=== PATIENT | female | born 1980 | race Two or more races ===

== ENCOUNTER 2016-06-26 12:27 | Emergency (ER) | payer OTHER ==
--- NOTE | ~2016-06-26 | ER ---
[facility] 36 [facility] [address] ROOM: [place] [address] LOCATION: ED ADMIT DATE: 06/26/2016 ER/Outpatient Report DISCHARGE DATE: 06/26/2016 FAMILY PHYSICIAN: Shante Schumacher MD ATTENDING PHYSICIAN: Gio Salinas Time of Arrival: 1257 hours. Time of Evaluation/Exam: 1257 hours. CHIEF COMPLAINT: Epigastric pain. HISTORY OF PRESENT ILLNESS: The patient states last night developed midepigastric pain that has been continuous throughout today. She has been nauseated, has not vomited. States she has had chills, but no fever. Has had some urinary frequency but no pain with urination. Has not had diarrhea. Had a normal bowel movement yesterday about 4 o'clock. Did not notice any blood with that. Has not noticed any blood in the urine. States she ate a salad last night for supper. States she has never had pain like this before. However, the ER records show that she has been here for right upper quadrant abdominal pain in the past. ALLERGIES: NO KNOWN ALLERGIES. CURRENT MEDICATIONS: On the chart and reviewed by me. PAST MEDICAL HISTORY: 1. Anemia. 2. Hypothyroidism. PAST SURGICAL HISTORY: Tubal ligation and heart surgery as a . She thinks it was a valve replacement, but she is not for sure. Last menstrual period was 06/06/2016. SOCIAL HISTORY: She denies use of tobacco, drugs, or alcohol. She works at [employer] in the [employer] [place]. REVIEW OF SYSTEMS: All negative other than those mentioned in the HPI. She does see Dr. Shante Schumacher and did see her on 06/22/2016, but she did not have this pain at that time. [facility] 36 Y [address] ROOM: [place], [place] [address] LOCATION: ED ADMIT DATE: 06/26/2016 ER/Outpatient Report DISCHARGE DATE: 06/26/2016 FAMILY PHYSICIAN: Shante Schumacher MD ATTENDING PHYSICIAN: Gio Salinas PHYSICAL EXAMINATION: VITAL SIGNS: She weighs 62.4 kg. Blood pressure is 134/68; pulse is 74; respirations 16; temperature of 98.2, tympanic; and O2 saturation is 97% on room air. GENERAL APPEARANCE: She is awake, alert, and oriented x4. SKIN: [place], warm, and dry. RESPIRATORY: Respirations are even and nonlabored. Lung sounds are clear throughout. HEART: Regular rate and rhythm. ABDOMEN: Soft and nondistended. Bowel sounds are present. She is tender to palpate in the right and left upper quadrant areas. MUSCULOSKELETAL: She walked in with a steady even gait. No peripheral edema noted. EMERGENCY DEPARTMENT COURSE: The patient was given Zofran 4 mg ODT. Laboratory work was drawn. CBC is within normal limits. Her hemoglobin is 10.8 with hematocrit of 33.7. Chem panel is within normal limits. Amylase was 49, lipase was 173. Clean-catch UA was obtained. Does show 500 leukocytes, and is positive for rare bacteria with 5-10 white blood cells. After approximately half hour from the Zofran, she was given a GI cocktail. She did go to ultrasound. Ultrasound was reported as negative. No signs of gallbladder stones or wall thickening. The patient continued to have some discomfort in the epigastric area. She was given Toradol 60 mg IM. It did calm things down. IMPRESSION: 1. Urinary tract infection. 2. Abdominal pain. PLAN: Home, rest, and fluids. The patient is to start on some omeprazole over the counter 1 tablet daily for the next couple weeks. If her symptoms do not improve within the next day 2 to 3 days, I would like her to follow up with Dr. Shante Schumacher. She verbalized understanding. LUAN MARTIN APRN FOR MD BHARAT CANDELARIO/jeanne /[id number] d: 06/26/162112 t: 07/06/16 0638, OUTPATIENT REPORT
[2016-06-26 13:23] LABS: BASOPHIL # 0.1 K/uL (0.0-0.2); BASOPHIL % 1.2 %; EOSINOPHIL # 0.1 K/uL (0.0-0.5); EOSINOPHIL % 1.4 %; HEMATOCRIT 33.7 % (33.0-46.0); HEMOGLOBIN 10.6 g/dL (11.0-15.0); IMMATURE GRANULOCYTE % 0.2 %; LYMPHOCYTE # 1.8 K/uL (0.8-4.0); LYMPHOCYTE % 35.4 %; MCH 24.5 pg (27.0-34.0); MCHC 31.5 gm/dL (32.0-36.5); MONOCYTE # 0.5 K/uL (0.0-1.0); MONOCYTE % 10.3 %; NEUTROPHIL # (ANC) 2.5 K/uL (1.8-7.8); NEUTROPHIL % 51.5 %; NRBC % 0 /100WBC (0-0.00); PLATELET COUNT 417 K/uL (150-450); RBC 4.32 M/uL (3.50-5.50); RDW-CV 14.5 % (11.9-14.6); WBC 4.9 K/uL (4.0-11.0)
[2016-06-26 13:42] LABS: ALK PHOS 79 IU/L (33-138); ALT 23 IU/L (12-78); ANION GAP 10.1 (10.0-19.0); AST 10 IU/L (10-40); BLOOD UREA NITROGEN 20 mg/dL (6-24); CALCIUM 8.7 mg/dL (8.5-10.5); CHLORIDE 104 mMol/L (96-110); CO2 28 mMol/L (22-32); CREATININE 0.9 mg/dL (0.5-1.1); ESTIMATED GFR (MDRD EQUATION) > 60; POTASSIUM 4.1 mMol/L (3.7-5.1); SODIUM 138 mMol/L (135-145); TOTAL BILIRUBIN 0.5 mg/dL (0.0-1.5); TOTAL PROTEIN 8.3 g/dL (6.0-8.4)
[2016-06-26 13:51] LABS: BILIRUBIN URINE NEGATIVE (NEGATIVE); BLOOD URINE NEGATIVE /UL (NEGATIVE); COLOR URINE YELLOW (YELLOW); GLUCOSE URINE NEGATIVE (NEGATIVE); KETONE URINE NEGATIVE (NEGATIVE); LEUKOCYTES URINE 500 /UL (NEGATIVE); NITRITE URINE NEGATIVE (NEGATIVE); PROTEIN URINE NEGATIVE (NEGATIVE); TURBIDITY URINE CLEAR (CLEAR); UROBILINOGEN URINE NORMAL (NORMAL)
[2016-06-26 14:18] LABS: BACTERIA URINE RARE (NEGATIVE); EPITHELIAL URINE RARE #/HPF (NEGATIVE); RBC URINE RARE #/HPF (NEGATIVE)
== END 2016-06-26 14:42 | disposition disaster alternative care site (69) ==
LOC: GMED 12:27
PROVIDERS: Emergency Medicine; Nurse Practitioner Family
DX: N39.0 Urinary tract infection, site not specified (principal); D64.9 Anemia, unspecified; E03.9 Hypothyroidism, unspecified
CPT/HCPCS: J1885

== ENCOUNTER 2016-08-26 22:41 | Emergency (ER) | payer OTHER ==
--- NOTE | ~2016-08-26 | ER ---
[facility] 36 [facility] [address] ROOM: [place] [address] LOCATION: [facility] ADMIT DATE: 08/26/2016 ER/Outpatient Report DISCHARGE DATE: 08/26/2016 FAMILY PHYSICIAN: PHYSICIAN, NO ATTENDING PHYSICIAN: Gio Salinas Time of Arrival: 2304 hours. Time of Exam: 2310 hours. CHIEF COMPLAINT: Sore throat. HISTORY OF PRESENT ILLNESS: The patient states she has had a sore throat for the past 3 days. Has some tenderness on the left side of her ear. She has a headache. Has felt like she has been running a fever. Has had some chills. Painful to swallow. ALLERGIES: NO KNOWN ALLERGIES. CURRENT MEDICATIONS: On her chart and reviewed by me. PAST MEDICAL HISTORY: Hypothyroidism. PAST SURGICAL HISTORY: She states she had heart surgery as a baby and has had ear tubes. SOCIAL HISTORY: She denies use of tobacco, drugs, or alcohol. REVIEW OF SYSTEMS: All negative other than those mentioned in the HPI. PHYSICAL EXAMINATION: VITAL SIGNS: She weighed 63.4 kg. Pulse of 100, respirations 18, temperature of 99.7, and O2 saturation was 99% on room air. GENERAL: She is awake, alert, and oriented x4. Skin: [place], warm, and dry. RESPIRATIONS: Even and nonlabored. HEENT: TMs are dull. Nasal is boggy. Oropharynx is red posteriorly. NECK: Supple. Positive anterior cervical nodes. LUNGS: Lung sounds are clear throughout. HEART: Regular rate and rhythm. PATIENT'S NAME: TERRI WILSON [facility] AGE: 36 Y [address] ROOM: [place] [address] LOCATION: [facility] ADMIT DATE: 08/26/2016 ER/Outpatient Report DISCHARGE DATE: 08/26/2016 FAMILY PHYSICIAN: PHYSICIAN, NO ATTENDING PHYSICIAN: Gio Salinas NEURO: The patient has walked in with a steady even gait. LABORATORY DATA: Strep screen was obtained, it was positive. IMPRESSION: Strep throat pharyngitis. PLAN: Home, rest, fluids. Tylenol or ibuprofen for discomfort. Prescription was written for amoxicillin. She is to follow up with her primary provider in 2-3 days. She verbalized understanding. PRUDENCIO TREVINO MD DJ/jeanne /[id number] d: 08/27/16 0120 t: 09/01/16 1113, OUTPATIENT REPORT
== END 2016-08-26 23:35 | disposition disaster alternative care site (69) ==
LOC: GMED 22:41
DX: J02.9 Acute pharyngitis, unspecified (principal); E03.9 Hypothyroidism, unspecified; Z79.899 Other long term (current) drug therapy; Z98.890 Other specified postprocedural states